=== PATIENT | male | born 1980 | race Caucasian/White ===

== ENCOUNTER 2017-11-23 19:41 | Emergency (ER) | payer BC, OTHER ==
--- NOTE | 2017-11-23 19:58 | EDM.PDOC ---
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 He continued to work through the day. On Friday patient went to the local pharmacy and obtained a tetanus vaccine. He continued to work and today his dorsum of his foot is edematous extending towards the lateral malleolus. Review of Systems: As per history of present illness and below otherwise all systems reviewed and negative. Past medical history: As per history of present illness and as reviewed below otherwise noncontributory. Surgical history: As per history of present illness and as reviewed below otherwise noncontributory. Social history: No reported history of drug or alcohol abuse. Family history: As per history of present illness and as reviewed below otherwise noncontributory. Physical exam: Alert and oriented male answering questions appropriately in full sentences without any shortness of breath. He is nontoxic in appearance. HEENT: Atraumatic, normocehpalic, pupils reactive, negative for conjunctival pallor or scleral icterus, mucous membranes moist, throat clear, neck supple, nontender, trachea midline. Lungs: Clear to auscultation, breath sounds equal bilaterally, chest non tender. Heart: S1S2, regular, negative for clicks, rubs, or JVD. Abdomen: Soft, nondistended, nontender. Negative for masses or hepatossplenmegaly. Negative for costovertebral tenderness. Pelvis: Stable nontender. Genitourinary: Deferred. Rectal: Deferred Extremities: Edema to the dorsum of the left foot extending to the lateral malleolus. Tender with palpation. He does have range of motion to his toes easily palpable ulcers. Refill less than 2 seconds, negative for cords or calf pain. Neurovascular unremarkable. Neuro: Awake, alert, oriented. Cranial nerves II through XII unremarkable. Cerebellum unremarkable. Motor and sensory unremarkable throughout. Exam nonfocal. Discussed the results with the patient and his mother questions were answered Diagnostics: []X-ray L foot Therapeutics: []ice augmentin Impression: []Soft tissue infection left foot Plan: []Home A prescription for Augmentin 875 one twice a day 10 days Epson salt water soaks 3 times a day Follow-up in 3 days with your primary care provider Definitive disposition and diagnosis as appropriate pending reevaluation and review of above. Onset: Sudden Duration: Day(s): (4) Location: Reports: Lower Extremity, Left Quality: Reports: Throbbing Severity: Moderate Improves with: Reports: None Worsens with: Reports: None Associated Symptoms: Reports: No Other Symptoms left ankle Pain Score (Numeric/FACES): 5 - Related Data Allergies Allergy/AdvReac Type Severity Reaction Status Date / Time No Known Allergies Allergy Verified 11/23/17 19:52 Home Meds: Home Meds Amoxicillin/Potassium Clav [Augmentin 875-125 Tablet] 1 each PO BID #20 tablet 11/23/17 [Rx] Past Medical History - Past Health History Medical/Surgical History: Denies Medical/Surgical History Review of Systems - Review of Systems Review Of Systems: ROS reveals no pertinent complaints other than HPI. ED EXAM, GENERAL - Physical Exam Exam: See Below (see dictation) Course - Vital Signs Last Recorded V/S: Last Vital Signs Temp 36.8 C 11/23/17 19:52 Pulse 114 H 11/23/17 19:52 Resp 18 11/23/17 19:52 BP 120/91 H 11/23/17 19:52 Pulse Ox 98 11/23/17 19:52 - Orders/Labs/Meds Orders: Active Orders 24 hr Category Date Time Status Foot 2V Lt [CR] Stat Exams 11/23/17 19:54 Taken Departure - Departure Time of Disposition: 21:08 Disposition: Home, Self-Care 01 Condition: Good Clinical Impression: Soft tissue infection - Discharge Information Prescriptions: Amoxicillin/Potassium Clav [Augmentin 875-125 Tablet] 1 each PO BID #20 tablet Referrals: Jose Ramírez MD [Primary Care Provider] - Forms: ED Department Discharge Additional Instructions: The following information is given to patients seen in the emergency department who are being discharged to home. This information is to outline your options for follow-up care. We provide all patients seen in our emergency department with a follow-up referral. The need for follow-up, as well as the timing and circumstances, are variable depending upon the specifics of your emergency department visit. If you don't have a primary care physician on staff, we will provide you with a referral. We always advise you to contact your personal physician following an emergency department visit to inform them of the circumstance of the visit and for follow-up with them and/or the need for any referrals to a consulting specialist. The emergency department will also refer you to a specialist when appropriate. This referral assures that you have the opportunity for followup care with a specialist. All of these measure are taken in an effort to provide you with optimal care, which includes your followup. Under all circumstances we always encourage you to contact your private physician who remains a resource for coordinating your care. When calling for followup care, please make the office aware that this follow-up is from your recent emergency room visit. If for any reason you are refused follow-up, please contact the [facility] emergency department at and asked to speak to the emergency department charge nurse. Follow-up with your primary care provider you have a soft tissue infection to your foot Antibiotics have been issued Augmentin 875 twice daily 10 days Epsom salt water soaks to help draw the infection out Return to the Emergency room as directed and discussed - My Orders Last 24 Hours: My Active Orders 11/23/17 19:54 Foot 2V Lt [CR] Stat - Assessment/Plan Last 24 Hours: My Active Orders 11/23/17 19:54 Foot 2V Lt [CR] Stat
[2017-11-23] MEDS ORDERED: Amoxicillin/Clavulanate K 875-125 MG Tab PO ONE (21:11)
[2017-11-23 21:36] VITALS: BP 140/93
--- NOTE | 2017-11-24 16:38 | CR ---
EXAM DATE: 11/23/17 PATIENT'S AGE: 37 Patient: SEDRICK JOHNSON Facility: [place], [place] Site . Site : 1980 Study: XRay Extremity Left [id number]/24/2018 8:18:44 PM Ordering Physician: Doctor Miller Final Report: INDICATION: Laceration. FINDINGS: Two views of the left foot were obtained. There is no fracture seen or dislocation. There is no radiopaque foreign body seen. The joint space compartments are maintained. IMPRESSION: No acute bone abnormality. Dictated by Anatoly Shah MD @ 11/23/2017 9:01:33 PM Dictated by: Anatoly Shah MD @ 11/23/2017 21:02:00 (Electronic Signature) Report Signed by Proxy. FRANCESCA
== END 2017-11-23 21:32 | disposition home or self-care (01) ==
LOC: MW.ED 19:41
DX: M79.89 Other specified soft tissue disorders (principal); L08.9 Local infection of the skin and subcutaneous tissue, unspecified
CPT/HCPCS: 73620; 99283; A9270

== ENCOUNTER 2018-01-20 11:47 | Emergency (ER) | payer OTHER ==
--- NOTE | 2018-01-20 12:00 | EDM.PDOC ---
ED HPI GENERAL MEDICAL PROBLEM - General Chief Complaint: Upper Extremity Injury/Pain Stated Complaint: SMASHED FINGER ON LT HAND Time Seen by Provider: 01/20/18 11:56 Source of Information: Reports: Patient History Limitations: Reports: No Limitations - History of Present Illness INITIAL COMMENTS - FREE TEXT/NARRATIVE: HISTORY AND PHYSICAL: History of present illness: Patient is a 37-year-old male who presents to the emergency room today with complaints of left thumb crush injury. He states while at work she crushed her left thumb with a sledge hammer resulting in an open laceration along the nail bed. He states his tetanus was updated within the last 5 years. He denies any other injury or extremity involvement. Review of systems: As per history of present illness and below otherwise all systems reviewed and negative. Past medical history: As per history of present illness and as reviewed below otherwise noncontributory. Surgical history: As per history of present illness and as reviewed below otherwise noncontributory. Social history: No reported history of drug or alcohol abuse. Family history: As per history of present illness and as reviewed below otherwise noncontributory. Physical exam: General: Well-developed and well-nourished 37-year-old male. Alert and oriented. Nontoxic appearing and in no acute distress. HEENT: Atraumatic, normocephalic, pupils equal and reactive bilaterally, negative for conjunctival pallor or scleral icterus, mucous membranes moist, throat clear, neck supple, nontender, trachea midline. No drooling or trismus noted. No meningeal signs Lungs: Clear to auscultation, breath sounds equal bilaterally, chest nontender. Heart: S1S2, regular rate and rhythm without overt murmur Abdomen: Soft, nondistended, nontender. Negative for masses or hepatosplenomegaly. Negative for costovertebral tenderness. Pelvis: Stable nontender. Genitourinary: Deferred. Rectal: Deferred. Skin: 1.5cm "L" shaped laceration to the left lateral thumb, along side of the nailbed and extending into the base of the nail bed. Soft tissue swelling noted. Otherwise skin is intact, warm, dry. No lesions or rashes noted. Extremities: Crush injury of the left thumb, see skin assessment for details. Capillary refill less than 3 seconds.Strong radial pulse. Able to flex and extend the digit. Able to push and resist against pressure. Neurovascular unremarkable. Neuro: Awake, alert, oriented. Cranial nerves II through XII unremarkable. Cerebellum unremarkable. Motor and sensory unremarkable throughout. Exam nonfocal. Notes: Distal tuft fracture. Soft tissue laceration adjacent to the distal tuft fracture. Area was thoroughly irrigated with wound wash. Chlorhexidine was used to clean the area. 1% lidocaine was used to anesthetize the area. 4-0 nylon, #7 interrupted sutures applied. 6 of those sutures were along the lateral skin of the nail and one suture to tack the base of the nail in. Patient tolerated well. Bacitracin bulky nonstick dressing applied. Dr Umaña was contacted regarding this patient. He states he will see the patient in 2-3 days. This information was shared with the patient and mother at bedside. Mother states she will call to make appointment. Signs and symptoms that would prompt him to return to the emergency room were reviewed and discussed. He voices understanding and is agreeable to plan of care. Denies any further questions or concerns at this time. Diagnostics: Xray Therapeutics: Lidocaine 1%, Bacitracin dressing, wound care, Ancef IM Prescription: Keflex 500mg q8 x 10 days Leslie PRN (#30) Impression: Left Distal Tuft Fracture, Open Plan: 1. Please keep the area clean and dry. Continue to monitor for signs of infection. Take the antibiotic as directed. 2. Tylenol and/or ibuprofen as needed for pain management. Leslie for moderate to severe pain. This medication may cause drowsiness so do not take it will driving her needing to be functioning outside of the house. 3. You need to follow up with the Hand Surgeon, Dr Umaña at [facility] in the next 2-3 days. Return to the ED as needed and as discussed. Definitive disposition and diagnosis as appropriate pending reevaluation and review of above. Onset: Today Duration: Minutes: Left thumb Pain Score (Numeric/FACES): 5 - Related Data Allergies Allergy/AdvReac Type Severity Reaction Status Date / Time No Known Allergies Allergy Verified 01/20/18 11:55 Home Meds: Home Meds Acetaminophen/HYDROcodone [Leslie 325-5 MG] 1 tab PO Q4H PRN #30 tablet 01/20/18 [Rx] cephALEXin [Keflex] 500 mg PO Q8H 10 Days #30 cap 01/20/18 [Rx] Past Medical History - Past Health History Medical/Surgical History: Denies Medical/Surgical History HEENT History: Reports: None Cardiovascular History: Reports: None Respiratory History: Reports: None Gastrointestinal History: Reports: None Genitourinary History: Reports: None Musculoskeletal History: Reports: None Neurological History: Reports: None Psychiatric History: Reports: None Endocrine/Metabolic History: Reports: None Hematologic History: Reports: None Immunologic History: Reports: None Oncologic (Cancer) History: Reports: None Dermatologic History: Reports: None - Infectious Disease History Infectious Disease History: Reports: None - Past Surgical History Head Surgeries/Procedures: Reports: None Musculoskeletal Surgical History: Reports: Arthroscopic Knee Social & Family History - Family History Family Medical History: Noncontributory - Caffeine Use Caffeine Use: Reports: None Review of Systems - Review of Systems Review Of Systems: ROS reveals no pertinent complaints other than HPI. ED EXAM, GENERAL - Physical Exam Exam: See Below (See dictation) ED TRAUMA EXTREMITY PROCEDURES - Laceration/Wound Repair Left thumb Lac/Wound Length In cm: 1.5 Appearance: Irregular, Mildly Contaminated Distal NVT: Neuro & Vascular Intact, No Tendon Injury Local Anesthesia - Lidocaine (Xylocaine): 1% Plain Local Anesthetic Volume: 4cc Skin Prep: Chlorhexidine (Hibiciens), Saline, Sterile Drape Saline Irrigation (cc's): 30 Exploration/Debridement/Repair: Wound Explored, No Foreign Material Found Closed With: Sutures Suture Size: 4-0 # of Sutures: 7 Suture Type: Nylon Drain Placement: No Sterile Dressing Applied: Provider Tetanus Status Addressed: Yes Complications: No Course - Vital Signs Last Recorded V/S: Last Vital Signs Temp 97.4 F 01/20/18 11:55 Pulse 73 01/20/18 11:55 Resp 16 01/20/18 11:55 BP 98/74 01/20/18 11:55 Pulse Ox 97 01/20/18 11:55 - Orders/Labs/Meds Orders: Active Orders 24 hr Category Date Time Status Fingers Thumb Lt FA [CR] Stat Exams 01/20/18 12:00 Taken Meds: Medications Discontinued Medications Generic Name Dose Route Start Last Admin Trade Name Freq PRN Reason Stop Dose Admin Hydrocodone Bitart/Acetaminophen 1 tab 01/20/18 12:38 01/20/18 13:13 Leslie 325-5 Mg PO 01/20/18 12:39 1 tab ONETIME ONE Administration Bacitracin 1 dose 01/20/18 12:10 01/20/18 12:52 Bacitracin Oint 1 Gm TOP 01/20/18 12:11 1 dose ONETIME ONE Administration Cefazolin Sodium 1 gm 01/20/18 12:38 01/20/18 13:13 Ancef IM 01/20/18 12:39 1 gm ONETIME ONE Administration Sterile Water Confirm 01/20/18 13:05 Sterile Water For Injection Administered 01/20/18 13:06 Dose 20 mls @ as directed .ROUTE .STK-MED ONE Lidocaine HCl 5 ml 01/20/18 12:10 01/20/18 12:52 Xylocaine-Mpf 1% INJECT 01/20/18 12:11 5 ml ONETIME ONE Administration Sterile Water 2.5 ml 01/20/18 13:08 Sterile Water For Injection INJECT 01/20/18 13:09 ONETIME ONE Departure - Departure Time of Disposition: 13:18 Disposition: Home, Self-Care 01 Clinical Impression: Open fracture of tuft of distal phalanx of finger - Discharge Information Prescriptions: Acetaminophen/HYDROcodone [Leslie 325-5 MG] 1 tab PO Q4H PRN #30 tablet PRN Reason: Pain cephALEXin [Keflex] 500 mg PO Q8H 10 Days #30 cap Referrals: PCP,None [Primary Care Provider] - Forms: ED Department Discharge Additional Instructions: The following information is given to patients seen in the emergency department who are being discharged to home. This information is to outline your options for follow-up care. We provide all patients seen in our emergency department with a follow-up referral. The need for follow-up, as well as the timing and circumstances, are variable depending upon the specifics of your emergency department visit. If you don't have a primary care physician on staff, we will provide you with a referral. We always advise you to contact your personal physician following an emergency department visit to inform them of the circumstance of the visit and for follow-up with them and/or the need for any referrals to a consulting specialist. The emergency department will also refer you to a specialist when appropriate. This referral assures that you have the opportunity for follow-up care with a specialist. All of these measure are taken in an effort to provide you with optimal care, which includes your follow-up. Under all circumstances we always encourage you to contact your private physician who remains a resource for coordinating your care. When calling for follow-up care, please make the office aware that this follow-up is from your recent emergency room visit. If for any reason you are refused follow-up, please contact the [facility] Emergency Department at and asked to speak to the emergency department charge nurse. Dr. Umaña [facility] [address] [place] [address] 1. Please keep the area clean and dry. Continue to monitor for signs of infection. Take the antibiotic as directed. 2. Tylenol and/or ibuprofen as needed for pain management. Leslie for moderate to severe pain. This medication may cause drowsiness so do not take it will driving her needing to be functioning outside of the house. 3. You need to follow up with the Hand Surgeon, Dr Umaña at [facility] in [place] in the next 2-3 days. Return to the ED as needed and as discussed. - My Orders Last 24 Hours: My Active Orders 01/20/18 12:00 Fingers Thumb Lt FA [CR] Stat - Assessment/Plan Last 24 Hours: My Active Orders 01/20/18 12:00 Fingers Thumb Lt FA [CR] Stat
[2018-01-20] MEDS ORDERED: Bacitracin Oint 1 GM U/D Packet TOP ONE (12:10)
[2018-01-20 12:35] VITALS: BP 98/74
[2018-01-20] MEDS ORDERED: Acetaminophen/HYDROcodone 325-5 MG Tab PO ONE (12:38)
[2018-01-20] MEDS ORDERED: ceFAZolin 1 GM Vial IM ONE (12:38)
[2018-01-20] MEDS ORDERED: Water For Injection, Sterile 20 ML ONE (13:05)
[2018-01-20] MEDS ORDERED: Water For Injection, Sterile 50 ML SDV INJECT ONE (13:08)
--- NOTE | 2018-01-20 13:50 | CR ---
EXAM DATE: 01/20/18 PATIENT'S AGE: 37 Patient: SEDRICK JOHNSON Facility: [place], [place] Site . Site : 1980 Study: XRay Extremity Left [id number] thumb-01/20/2018 12:19:52 PM Ordering Physician: Doctor Miller Final Report: INDICATION: Crush injury TECHNIQUE: Three views left thumb COMPARISON: None FINDINGS: Bones: Distal tuft fracture involving the thumb. Joint spaces: Unremarkable. Soft tissues: Soft tissue laceration adjacent to the distal tuft. IMPRESSION: Distal tuft fracture. Soft tissue laceration adjacent to the distal tuft. Dictated by James Mcallister MD @ 01/20/2018 12:56:13 PM Dictated by: James Mcallister MD @ 01/20/2018 12:56:20 (Electronic Signature) Report Signed by Proxy. FRANCESCA
== END 2018-01-20 13:24 | disposition home or self-care (01) ==
LOC: MW.ED 11:47
DX: S67.02XA Crushing injury of left thumb, initial encounter (principal); S62.522B Displaced fracture of distal phalanx of left thumb, initial encounter for open fracture; W23.0XXA Caught, crushed, jammed, or pinched between moving objects, initial encounter
CPT/HCPCS: 12001; 73140; 96372; 99283; A9270; J0690

== ENCOUNTER 2020-05-31 16:36 | Emergency (ER) | payer SELFPAY ==
[2020-05-31] MEDS ORDERED: Sodium Chloride 0.9% 2.5 ML Syringe FLUSH PRN (16:52)
[2020-05-31] MEDS ORDERED: Sodium Chloride 0.9% 10 ML Syringe FLUSH PRN (16:52)
[2020-05-31 17:00] VITALS: BP 134/95; PULSE 104
--- NOTE | 2020-05-31 17:02 | EDM.PDOCBH ---
<Chris Gaming - Last Filed: 05/31/20 19:20> ED HPI GENERAL MEDICAL PROBLEM - General Chief Complaint: Behavioral/Psych Stated Complaint: MEDICAL CLEARANCE Time Seen by Provider: 05/31/20 16:36 Source of Information: Reports: Patient, Police History Limitations: Reports: No Limitations - History of Present Illness INITIAL COMMENTS - FREE TEXT/NARRATIVE: This is a 40-year-old male with no past medical history presenting with law enforcement for behavioral health evaluation. He was reportedly seen walking around taking pictures of random objects. He walked by the police station and law enforcement was concerned about suspicious behavior. When a police reserves commander confronted him, he made a motion as of to slit his own throat. Police made contact and he made comments about wanting to slit his own throat and wanting to . He states that he had been drinking joreg and eggnog earlier today. He told law enforcement that he was upset about the fact that his mother has cancer. He told police that he had been drinking alcohol so he does not "blow my own brains out". He denied taking any action to harm himself to law enforcement officers. Patient denies doing anything that actually harm himself today. Denies any illegal drug use or medication overdose. Denies history of depression, anxiety, PTSD, schizophrenia, or bipolar disorder. He denies any prior suicide attempts or attempts at self-harm in the past. At present he denies any desire to harm himself and denies taking any action to harm himself earlier today. ROS: A 10-point review of systems was negative, except as noted in the HPI (or in the ROS section of this note). Past medical history: Reviewed, no additional pertinent history. Surgical history: Reviewed in system, no additional pertinent history. Social history: Reviewed in system, no additional pertinent history. Family history: Reviewed in system, no additional pertinent history. PHYSICAL EXAM Vital signs reviewed. Nursing notes reviewed. Constitutional: Awake, alert, non-distressed. Head: Normocephalic, atraumatic. Eyes: Pupils 3 mm bilaterally, EOMI, conjunctiva normal, no discharge, no scleral icterus. Ears, Nose, Throat: External ears and nose normal, moist oral mucosa. Cardiovascular: 2+ radial pulses bilaterally, capillary refill less than 2 seconds. Pulmonary: normal work of breathing, no accessory muscle use. Abdomen/GI: Soft, nontender, nondistended, no guarding or rigidity, no masses. Musculoskeletal: No deformities. Integumentary: Appropriate color for ethnicity, warm, dry, no pallor or jaundice, no rash. Neurologic: Alert, answering questions appropriately, slightly slurred speech, no facial droop, moving all extremities well. Psychiatric: Poor judgment, somewhat withdrawn. This patient was seen and evaluated during the 2019 SARS-CoV-2 novel coronavirus pandemic period. Community viral transmission is ongoing at time of this encounter and the emergency department is operating under pandemic response procedures. - Related Data Allergies Allergy/AdvReac Type Severity Reaction Status Date / Time No Known Allergies Allergy Verified 05/31/20 16:54 Home Meds: Home Meds . [No Known Home Meds] 05/31/20 [History] Past Medical History - Past Health History Medical/Surgical History: Denies Medical/Surgical History HEENT History: Reports: None Cardiovascular History: Reports: None Respiratory History: Reports: None Gastrointestinal History: Reports: None Genitourinary History: Reports: None Musculoskeletal History: Reports: None Neurological History: Reports: None Psychiatric History: Reports: None Endocrine/Metabolic History: Reports: None Hematologic History: Reports: None Immunologic History: Reports: None Oncologic (Cancer) History: Reports: None Dermatologic History: Reports: None - Infectious Disease History Infectious Disease History: Reports: None - Past Surgical History Head Surgeries/Procedures: Reports: None Musculoskeletal Surgical History: Reports: Arthroscopic Knee Social & Family History - Family History Family Medical History: No Pertinent Family History - Caffeine Use Caffeine Use: Reports: None ED ROS GENERAL - Review of Systems Review Of Systems: See Below ED EXAM, BEHAVIORAL HEALTH - Physical Exam Exam: See Below #1 Interpretation EKG Interpretation Comments: 12-Lead ECG Interpretation Acquired: 4:57 PM Rhythm: Sinus rhythm Rate: 96 bpm [place]: Normal Intervals: Normal Ectopy: None RV Strain: No obvious RV strain pattern. ST Segments/T-Waves: No notable changes Acute Ischemic Changes: None apparent Interpretation: No STEMI COURSE, BEHAVIORAL HEALTH COMP - Course Discharge vs Psych Eval/Treatment:: 40-year-old male presenting with concern for suicidal statements and gestures. On arrival emergency department, patient is cooperative, mildly tachycardic otherwise looks hemodynamically stable. We will plan for twelve-lead EKG, laboratory studies, and close monitoring. Legal status hold signed given explicit desires to harm himself made to law enforcement officers. Twelve-lead EKG nonischemic, normal intervals, no ectopy. 1725: Patient refusing IV access or venipuncture. I explained and served his legal status hold and informed him that he is being treated on an involuntary basis given his suicidal gestures and statements to law enforcement. Patient's nurse was able to convince the patient to allow IV access and labs. Urine drug screen negative. CBC is reassuring, metabolic panel is also reassuring. Normal renal function. LFTs show mildly elevated AST and ALT at 91 and 66, respectively. Troponin is negative. TSH is within normal limits. Salicylates are 4.0, which is detectable but within a reference range and is typical for our laboratory assay. Acetaminophen level is negative, ethyl alcohol is 292. We are awaiting a COVID-19 swab. Anticipate the patient will be transferred to a psychiatric facility for further mental health stabilization and evaluation. Patient remained in the emergency department through the my shift. Please refer to my colleague Dr. Lowery's note for the disposition. Departure - Departure Time of Disposition: 19:21 Disposition: DC/Tfer to Psych Hosp/Unit 65 Condition: Good Clinical Impression: MDD (major depressive disorder), Acute alcohol intoxication, Suicidal ideation - Discharge Information Referrals: PCP,None [Primary Care Provider] - Forms: ED Department Discharge Sepsis Event Note (ED) - Evaluation Sepsis Screening Result: No Definite Risk <Zachary Lowery - Last Filed: 05/31/20 20:45> ED HPI GENERAL MEDICAL PROBLEM - History of Present Illness INITIAL COMMENTS - FREE TEXT/NARRATIVE: 8:43 PM: Signout received at 7 PM. Patient seen and evaluated by me. Chart reviewed. Patient's labs are all within normal limits except for an elevated alcohol level. Patient's Covid test was negative. I have discussed the case with Dr. Martin at [facility] who is agreed to assist with transfer of this patient to the behavioral health unit at [facility] [place]. I have discussed the case with Dr. Hurtado from the emergency department who has agreed to accept patient in transfer for further mental health evaluation. COURSE, BEHAVIORAL HEALTH COMP - Course Vital Signs: Last Vital Signs Temp 97.9 F 05/31/20 16:54 Pulse 104 H 05/31/20 16:54 Resp 18 05/31/20 16:54 BP 134/95 H 05/31/20 16:54 Pulse Ox 97 05/31/20 16:54 Orders, Labs, Meds: Active Orders 24 hr Category Date Time Status EKG Documentation Completion [RC] STAT Care 05/31/20 16:53 Active Involuntary Admission/Hold [RC] ASDIRECTED Care 05/31/20 16:54 Active Suicide Precautions [RC] ASDIRECTED Care 05/31/20 16:53 Active Sodium Chloride 0.9% [Saline Flush] Med 05/31/20 16:52 Active 10 ml FLUSH ASDIRECTED PRN Sodium Chloride 0.9% [Saline Flush] Med 05/31/20 16:52 Active 2.5 ml FLUSH ASDIRECTED PRN Saline Lock Insert [OM.PC] Stat Oth 05/31/20 16:52 Ordered Medication Orders Sodium Chloride (Saline Flush) 10 ml FLUSH ASDIRECTED PRN PRN Reason: Keep Vein Open Sodium Chloride (Saline Flush) 2.5 ml FLUSH ASDIRECTED PRN PRN Reason: Keep Vein Open Laboratory Tests 05/31/20 05/31/20 05/31/20 Range/Units 16:50 18:01 18:01 WBC 6.24 (4.0-11.0) K/uL RBC 4.74 (4.50-5.90) M/uL Hgb 15.9 (13.0-17.0) g/dL Hct 46.3 (38.0-50.0) % MCV 97.7 (80.0-98.0) fL MCH 33.5 H (27.0-32.0) pg MCHC 34.3 (31.0-37.0) g/dL RDW Std Deviation 43.5 (28.0-62.0) fl RDW Coeff of Lisa 12 (11.0-15.0) % Plt Count 226 (150-400) K/uL MPV 9.50 (7.40-12.00) fL Neut % (Auto) 70.7 (48.0-80.0) % Lymph % (Auto) 19.7 (16.0-40.0) % [place] % (Auto) 7.9 (0.0-15.0) % Eos % (Auto) 1.4 (0.0-7.0) % Baso % (Auto) 0.3 (0.0-1.5) % Neut # (Auto) 4.4 (1.4-5.7) K/uL Lymph # (Auto) 1.2 (0.6-2.4) K/uL [place] # (Auto) 0.5 (0.0-0.8) K/uL Eos # (Auto) 0.1 (0.0-0.7) K/uL Baso # (Auto) 0.0 (0.0-0.1) K/uL Nucleated RBC % 0.0 /100WBC Nucleated RBCs # 0 K/uL Sodium 145 (136-148) mmol/L Potassium 3.7 (3.5-5.1) mmol/L Chloride 105 (98-107) mmol/L Carbon Dioxide 28.7 (21.0-32.0) mmol/L BUN 10 (7.0-18.0) mg/dL Creatinine 1.1 (0.8-1.3) mg/dL Est Cr Clr Drug Dosing 93.09 mL/min Estimated GFR (MDRD) > 60.0 ml/min Glucose 101 (74-106) mg/dL Calcium 8.9 (8.5-10.1) mg/dL Total Bilirubin 0.2 (0.2-1.0) mg/dL AST 91 H (15-37) IU/L ALT 66 H (14-63) IU/L Alkaline Phosphatase 85 (46-116) U/L Troponin I < 0.050 (0.000-0.056) ng/mL Total Protein 7.8 (6.4-8.2) g/dL Albumin 4.1 (3.4-5.0) g/dL Globulin 3.7 (2.6-4.0) g/dL Albumin/Globulin Ratio 1.1 (0.9-1.6) TSH 3rd Generation 1.56 (0.36-3.74) uIU/mL Salicylates 4.0 (0-20) mg/dL Urine Opiates Screen NEGATIVE (NEGATIVE) Ur Oxycodone Screen NEGATIVE (NEGATIVE) Urine Methadone Screen NEGATIVE (NEGATIVE) Acetaminophen <2.0 ug/mL Ur Barbiturates Screen NEGATIVE (NEGATIVE) Ur Phencyclidine Scrn NEGATIVE (NEGATIVE) Ur Amphetamine Screen NEGATIVE (NEGATIVE) U Methamphetamines Scrn NEGATIVE (NEGATIVE) U Benzodiazepines Scrn NEGATIVE (NEGATIVE) U Cocaine Metab Screen NEGATIVE (NEGATIVE) U Marijuana (THC) Screen NEGATIVE (NEGATIVE) Ethyl Alcohol 292 mg/dL SARS-CoV-2 RNA (KATHERINE) (NEGATIVE) 05/31/20 Range/Units 18:49 WBC (4.0-11.0) K/uL RBC (4.50-5.90) M/uL Hgb (13.0-17.0) g/dL Hct (38.0-50.0) % MCV (80.0-98.0) fL MCH (27.0-32.0) pg MCHC (31.0-37.0) g/dL RDW Std Deviation (28.0-62.0) fl RDW Coeff of Lisa (11.0-15.0) % Plt Count (150-400) K/uL MPV (7.40-12.00) fL Neut % (Auto) (48.0-80.0) % Lymph % (Auto) (16.0-40.0) % [place] % (Auto) (0.0-15.0) % Eos % (Auto) (0.0-7.0) % Baso % (Auto) (0.0-1.5) % Neut # (Auto) (1.4-5.7) K/uL Lymph # (Auto) (0.6-2.4) K/uL [place] # (Auto) (0.0-0.8) K/uL Eos # (Auto) (0.0-0.7) K/uL Baso # (Auto) (0.0-0.1) K/uL Nucleated RBC % /100WBC Nucleated RBCs # K/uL Sodium (136-148) mmol/L Potassium (3.5-5.1) mmol/L Chloride (98-107) mmol/L Carbon Dioxide (21.0-32.0) mmol/L BUN (7.0-18.0) mg/dL Creatinine (0.8-1.3) mg/dL Est Cr Clr Drug Dosing mL/min Estimated GFR (MDRD) ml/min Glucose (74-106) mg/dL Calcium (8.5-10.1) mg/dL Total Bilirubin (0.2-1.0) mg/dL AST (15-37) IU/L ALT (14-63) IU/L Alkaline Phosphatase (46-116) U/L Troponin I (0.000-0.056) ng/mL Total Protein (6.4-8.2) g/dL Albumin (3.4-5.0) g/dL Globulin (2.6-4.0) g/dL Albumin/Globulin Ratio (0.9-1.6) TSH 3rd Generation (0.36-3.74) uIU/mL Salicylates (0-20) mg/dL Urine Opiates Screen (NEGATIVE) Ur Oxycodone Screen (NEGATIVE) Urine Methadone Screen (NEGATIVE) Acetaminophen ug/mL Ur Barbiturates Screen (NEGATIVE) Ur Phencyclidine Scrn (NEGATIVE) Ur Amphetamine Screen (NEGATIVE) U Methamphetamines Scrn (NEGATIVE) U Benzodiazepines Scrn (NEGATIVE) U Cocaine Metab Screen (NEGATIVE) U Marijuana (THC) Screen (NEGATIVE) Ethyl Alcohol mg/dL SARS-CoV-2 RNA (KATHERINE) NEGATIVE (NEGATIVE) Medications Generic Name Dose Route Start Last Admin Trade Name Freq PRN Reason Stop Dose Admin Sodium Chloride 10 ml 05/31/20 16:52 Saline Flush FLUSH ASDIRECTED PRN Keep Vein Open Sodium Chloride 2.5 ml 05/31/20 16:52 Saline Flush FLUSH ASDIRECTED PRN Keep Vein Open Departure - Departure Condition: Good Sepsis Event Note (ED) - Focused Exam Vital Signs: Vital Signs Temp Pulse Resp BP Pulse Ox 05/31/20 16:54 97.9 F 104 H 18 134/95 H 97 - Assessment/Plan Admission H&P: Please use this note as an admission H&P
[2020-05-31 18:43] LABS: ACETAMINOPHEN <2.0 ug/mL; BLOOD UREA NITROGEN,BUN 10 mg/dL (7.0-18.0); CHLORIDE,CL 105 mmol/L (98-107); SODIUM,NA 145 mmol/L (136-148)
[2020-05-31 18:48] LABS: CARBON DIOXIDE,CO2 28.7 mmol/L (21.0-32.0); GLUCOSE RANDOM 101 mg/dL (74-106); POTASSIUM,K 3.7 mmol/L (3.5-5.1)
== END 2020-05-31 22:03 ==
LOC: MW.ED 16:36
DX: F32.9 Major depressive disorder, single episode, unspecified (principal); F10.129 Alcohol abuse with intoxication, unspecified; Y90.8 Blood alcohol level of 240 mg/100 ml or more; Z20.828 Contact with and (suspected) exposure to other viral communicable diseases
CPT/HCPCS: 36415; 80053; 80305-QW; 80307; 84443; 84484; 85025; 93005; 99285-25; U0002

== ENCOUNTER 2022-01-06 21:31 | Emergency (ER) | payer BC, MEDICAID ==
[2022-01-06] MEDS ORDERED: Diphtheria,Pertussis(Acell),Tetanus Vaccine 0.5 ML Syringe IM ONE (21:53)
[2022-01-06] MEDS ORDERED: Ibuprofen 600 MG Tab PO ONE (21:53)
[2022-01-06] MEDS ORDERED: Cephalexin 500 MG Cap PO ONE (21:53)
[2022-01-06 22:23] VITALS: BP 142/87; PULSE 85
== END 2022-01-06 22:23 | disposition home or self-care (01) ==
LOC: MW.ED 21:31
DX: T25.222A Burn of second degree of left foot, initial encounter (principal); T25.221A Burn of second degree of right foot, initial encounter; F17.210 Nicotine dependence, cigarettes, uncomplicated; Z23 Encounter for immunization; X19.XXXA Contact with other heat and hot substances, initial encounter
CPT/HCPCS: 90471; 90715; 99283; A9270